=== PATIENT | male | born 1980 | race Two or more races ===

== ENCOUNTER 2019-09-10 23:05 | Emergency (ER) | payer SELFPAY ==
[~2019-09-10] VITALS: Ht 190.5 cm; Wt 84.0 kg
[2019-09-10 23:07] VITALS: BP 151/94
--- NOTE | 2019-09-10 23:50 | NUR ---
PT RESTING IN CHAIR, NAD, ERP AT PT'S SIDE FOR EVAL, AWAITING ORDERS
[2019-09-10] MEDS ORDERED: DIPHENHYDRAMINE 25 MG CAPSULE ONE (23:54)
[2019-09-10] MEDS ORDERED: FAMOTIDINE 20 MG TABLET ONE (23:55)
--- NOTE | 2019-09-10 23:58 | NUR ---
PT MEDICATED PER MAR
[2019-09-11] MEDS ORDERED: DIPHENHYDRAMINE 25 MG CAPSULE PO ONE
[2019-09-11] MEDS ORDERED: FAMOTIDINE 20 MG TABLET PO ONE
== END 2019-09-11 00:03 | disposition home or self-care (01) ==
LOC: ED 23:30
DX: L50.0 Allergic urticaria (principal)
CPT/HCPCS: 99284; J7512; Q0163